=== PATIENT | male | born 1955 | race Caucasian/White ===

== ENCOUNTER 2019-02-01 01:27 | Observation (INO) | payer MEDICARE, MEDICAID ==
[2019-01-31 15:39] LABS: INR 1.03
[~2019-02-01] VITALS: Ht 177.8 cm; Wt 134.3 kg
[2019-02-01] VITALS (17 sets, daily range): BP systolic 106–162; BP diastolic 57–91
[~2019-02-01 01:27] MED LIST: GUAI600T34 PO; HYDR-2966 PO; HYDR30CR10 TP; LOSA50TA80 PO; MELA3TAB31 PO; METO25TA23 PO; MOM PO; MULT-1335 PO; NAPR220C12 PO; POTA10CA40 PO; THIA100T6 PO
[2019-02-01] MEDS ORDERED: PREGABALIN 150 MG CAPSULE PO ONE (09:00)
[2019-02-01] MEDS ORDERED: ROPIVACAINE/EPI/CLONIDINE/KET 50 ML SYRINGE INJ ONE (09:45)
[2019-02-01] MEDS ORDERED: FAMOTIDINE 20 MG TAB PO ONE (09:45)
[2019-02-01] MEDS ORDERED: ceFAZolin(*) 1 GM VIAL 3 GM in NS(*) 0.9% 100 ML BAG 100 ML IVPB ONE (09:45)
[2019-02-01] MEDS ORDERED: MIDAZOLAM 2 MG/2 ML VIAL IVP PRN (09:45)
[2019-02-01] MEDS ORDERED: LIDOCAINE/SOD BICARB 8.4% SYR ID ONE (09:45)
[2019-02-01] MEDS ORDERED: CELECOXIB 200 MG CAP PO ONE (09:45)
[2019-02-01] MEDS ORDERED: METOPROLOL SUCC XL 25 MG TABCR PO ONE (09:45)
[2019-02-01] MEDS ORDERED: NORMOSOL R SOLN(*) 1000 ML BAG 1,000 ML IV PRN ×2 (09:45→15:05)
[2019-02-01] MEDS ORDERED: ACETAMINOPHEN 500 MG TAB PO ONE (09:45)
[2019-02-01] MEDS ORDERED: ROPIVACAINE 0.5% 20 ML VIAL ONE ×2 (09:51→10:59)
[2019-02-01] MEDS ORDERED: DEXAMETHASONE SOD PHOS 10MG/ML ONE (10:59)
[2019-02-01] MEDS ORDERED: DEXAMETHASONE SOD 4 MG/ML VIAL ONE (11:04)
[2019-02-01] MEDS ORDERED: fentaNYL CITR 250 MCG/5 ML AMP ONE ×2 (11:05→13:28)
[2019-02-01] MEDS ORDERED: LIDOCAINE 2% IV 100 MG/5ML SYR ONE (11:05)
[2019-02-01] MEDS ORDERED: PROPOFOL EMUL(*) 10MG/ML 20 ML 20 ML ONE (11:05)
[2019-02-01] MEDS ORDERED: TRANEXAMIC AC 1000 MG/10ML SDV 1,000 MG in DEXTROSE 5% 50 ML BAG 50 ML IV ONE (11:30)
[2019-02-01] MEDS ORDERED: ROPIVACAINE 0.2% 400 MG/200ML 250 ML CONINFUS ONE (11:55)
[2019-02-01] MEDS ORDERED: ONDANSETRON 4 MG/2 ML VIAL ONE (12:50)
[2019-02-01] MEDS ORDERED: KETAMINE HCL 200 MG/20 ML MDV ONE ×2 (12:51→14:01)
[2019-02-01] MEDS ORDERED: fentaNYL CITR 100 MCG/2 ML AMP ONE ×2 (14:48→15:05)
[2019-02-01] MEDS ORDERED: ONDANSETRON 4 MG/2 ML VIAL IVP PRN (15:05)
[2019-02-01] MEDS ORDERED: ZOLPIDEM TARTRATE 5 MG TAB PO PRN (15:05)
[2019-02-01] MEDS ORDERED: BISACODYL 10 MG SUPP PR PRN (15:05)
[2019-02-01] MEDS ORDERED: MORPHINE 4 MG/ML SDV IVP PRN (15:05)
[2019-02-01] MEDS ORDERED: MAGNESIUM HYDROXIDE* 30ML UDCP PO PRN (15:05)
[2019-02-01] MEDS ORDERED: PROMETHAZINE 25 MG/ML 1 ML AMP IVP PRN (15:05)
[2019-02-01] MEDS ORDERED: FLUSH 10 ML SYR IVP PRN (15:05)
--- NOTE | 2019-02-01 16:22 | RADIOLOGY IMAGING REPORT ---
FACILITY: [facility] - [place] PATIENT NAME: Carlito Bond : 1955 MR: [id number] V: [id number] EXAM DATE: ORDERING PHYSICIAN: JARET PARKER TECHNOLOGIST: [facility] Patient: Carlito Bond : 1955 Visit/Account:[id number] Date of Sevice: 02/01/2019 Exam type: KNEE LIMITED RIGHT History: POST OP R TKA Comparison: None. Findings: Two views of the right knee demonstrate a right knee arthroplasty in good anatomic alignment. Soft t issue gas projects over the anterior aspect of this postoperative knee IMPRESSION: 1. As above Report Dictated By: Rose Quezada MD at 02/01/2019 4:16 PM Report E-Signed By: Rose Quezada MD at 02/01/2019 4:17 PM WSN:[email or web address]
[2019-02-01] MEDS ORDERED: ACET-2043 PO (16:26)
[2019-02-01] MEDS ORDERED: DIPH-740 PO (16:26)
[2019-02-01] MEDS ORDERED: BISA10SU62 RC (16:26)
--- NOTE | 2019-02-01 16:45 | Hospitalist Progress Note ---
Subjective Progress Notes Subjective Patient seen post-op. Reviewed PMHx (alcoholism, HTN) and medications (metoprolol, losartan, HCTZ). At present, he reports doing well. No CP/SOB/nausea. Physical Exam Vital Signs Date Time Temp Pulse Resp B/P (MAP) Pulse Ox O2 Delivery O2 Flow Rate FiO2 02/01/19 16:00 97.9 71 16 147/81 (103) 90 Nasal Cannula 2.0 General Appearance: Alert, Awake Cardiovascular: Regular Rate and Rhythm Respiratory: Clear to Auscultation GI: Soft and Non-Tender (obese) Psych: Alert & Oriented X3 Assessment and Plan Problems: (1) Status post knee replacement Status: Acute Assessment & Plan: He appears to have tolerated OR/anesthesia fairly well. He has no history of DVT/PE. He will be on aspirin 325mg daily for 30-35 days for prophylaxis. (2) HTN (hypertension) Status: Chronic Assessment & Plan: Will monitor BPs and resume metoprolol, losartan, HCTZ as needed. (3) Alcoholism Status: Chronic Assessment & Plan: He has [facility] facility and has not had any alcohol for over three months. He will continue on his nutritional supplements. Problem Qualifiers (1) Status post knee replacement: Laterality: right Qualified Codes: Z96.651 - Presence of right artificial knee joint SAMPSON GAMEZ MD Feb 01, 2019 16:45
--- NOTE | 2019-02-01 17:00 | NUR ---
Physical Therapy Impression PT eval completed. Pt would like to attempt standing at EOB if possible. Pt limited by numbness still noted in LE's. Pt tolerated side step to head of bed with Min/Mod assist by PT. Not recommended to ambulate at this time. Pt encouraged to complete stand-pivot transfer with nursing to [facility] when toileting is required for initial attempt and then amb to/from BR through the night as LE's demo improved coordination. Physical Therapy Goals 1. Pt to be SBA/CGA for sit to/from stand transfers 2. Pt to be CGA/Min assist for supine to/from sit transfers 3. Pt to ambulate x 100' with FWW and SBA/CGA Patient's Goals
[2019-02-01] MEDS: ACETAMINOPHEN 500 MG TAB PO SCH (17:08)
[2019-02-01] MEDS ORDERED: NS(*) 0.9% 250 ML BAG 250 ML ONE (20:11)
[2019-02-01] MEDS: ceFAZolin(*) 2GM/D5W 50ML 50 ML IVPB SCH (20:21)
[2019-02-01] MEDS: MELATONIN 3 MG TAB PO SCH (20:23)
[2019-02-01] MEDS ORDERED: ASPIRIN 325 MG TAB PO ONE (21:00)
[2019-02-01] MEDS: KETOROLAC TROM 10MG TAB PO PRN (21:59)
[2019-02-02] VITALS (7 sets, daily range): BP systolic 111–133; BP diastolic 66–84
[2019-02-02] MEDS: ACETAMINOPHEN 500 MG TAB PO SCH ×3 (00:59→17:54)
--- NOTE | 2019-02-02 01:07 | OPERATIVE REPORT 1 ---
EVENT DATE: February 01, 2019 SURGEON: Jcarlos Barahona MD ANESTHESIOLOGIST: Shay Porter MD ANESTHESIA: Right adductor block followed by general. HOSPICE DIRECTOR: Musa Wilson PA-C PREOPERATIVE DIAGNOSIS Right knee degenerative joint disease, varus alignment, mild flexion contracture. POSTOPERATIVE DIAGNOSIS Right knee degenerative joint disease, varus alignment, mild flexion contracture. PROCEDURE PERFORMED Right total knee arthroplasty. IMPLANTS USED MicroPort medial pivot CS system with a 7 femur, 7 tibia, 10 mm CS insert, 35 x 8 symmetric patella, and femur cut 6 degrees valgus, 10 mm. We also utilized two packages of DonJoy [place] Blue cement, ZipLine wound closure system, and our standard 50 mL of Toradol/ropivacaine cocktail. SPECIMENS None. COMPLICATIONS None. BLOOD LOSS Approximately 300 mL. DESCRIPTION OF PROCEDURE The patient was brought to the OR, receiving appropriate preoperative antibiotic, and Dr. Porter performed right adductor canal block with indwelling catheter followed by general anesthesia. Right thigh tourniquet was placed but was not utilized. Right lower extremity prepped and draped in the usual sterile fashion. Midline incision was made, followed by medial parapatellar arthrotomy. Exposure was continued along the medial tibial plateau subperiosteally to the level of the semimembranosus insertion. Laterally, the fat pad was excised, patella released and everted. Noted eburnation of the medial compartment and patellofemoral compartment, high-grade changes of the lateral compartment. There were osteophytes of the notch around the femoral condyle and the medial tibial plateau. These were removed with a rongeur. ACL and PCL were released subperiosteally by Bovie. The knee was brought up into hyperflexion. The remaining articular cartilage was removed from the distal femoral condyle by sagittal saw, and then we utilized a step-cut drill to broach the canal. We placed our intramedullary distal femoral alignment jig, setting this up at 6 degrees valgus, 10 mm. We made our distal cut with care taken to protect the soft tissues. A 3-degree external rotation guide and sizer were then placed, referencing off the anterior flange, epicondyles, and posterior condyles, and we sized the femur to a #7, drilled our holes. The 4-in-1 cutting block was positioned, followed by Z-retractors, and we made our four cuts. The tibia was then brought anteriorly onto the femur with appropriate retractors, and step-cut drill was utilized to broach the tibial canal. Intramedullary tibial guide was then positioned, which referenced for our slope, and then we set for a 10 mm cut off the least involved lateral tibial plateau and set up for rotation, pinned our block into place and made our cut, with care taken to protect the soft tissues. This was sized to a #7. The stump of the ACL, PCL, and medial and lateral meniscus were removed by Bovie. Curved osteotome was utilized to remove posterior osteophytes, followed by elevation of the capsule with the Gan elevator. We then placed our trial tibial base plate, referencing the previous rotation. We pinned this into place, placed a 10 mm insert and then our femur. We were able to achieve full extension, flexion to about 130 degrees, limited by body habitus, stability to varus and valgus stress, and a satisfactory endpoint and anterior drawer at 90 degrees. Knee was brought into full extension. Patella was sized, and we placed an 8 mm cutting guide and cut down the patella from 23 mm down to 15 mm. Peg hole guide was positioned inferiorly and medially, peg holes drilled, and we placed our trial, which fit satisfactorily. The knee was then flexed, peg holes drilled for the femur and the pegs placed. We cut for our trochlear chip and placed this. Again, we had the aforementioned range of motion and stability. The patella tracked well. Patella, femur, and tibial insert were removed. Appropriate retractors were placed to set up our keel tower, which was cut, reamed and punched. This was then removed. Bone plug placed in the distal femur. Knee brought into full extension. We copiously irrigated by pulsed lavage as we mixed two packages of DonJoy Ros[place] Blue cement. We then injected the posterior capsule with 10 mL of our cocktail, placed the knee in appropriate position, and starting at the tibia, we cemented this into place, followed by our 10 mm CS insert, then our femur. Excess cement was removed. The knee was brought into full extension with axial compression while we cemented the patella. It took 12 minutes for the cement to cure. As we were waiting for this to cure, we placed the remaining 40 mL of our cocktail into the distal quad mechanism. We then copiously irrigated once again, again assessed our tracking and stability and were satisfied. The knee was placed at 30 degrees, arthrotomy closed with #2 Vicryl followed by 2-0 Vicryl for the subcutaneous tissue and ZipLine wound closure system for skin. We placed a compressive dressing. Patient was extubated and taken to Recovery in stable condition. Hospitalist team will be consulted for medical management and anticoagulation, PT for rehab. OLU
[2019-02-02] MEDS: ceFAZolin(*) 2GM/D5W 50ML 50 ML IVPB SCH ×2 (04:20→12:54)
[2019-02-02] MEDS: KETOROLAC TROM 10MG TAB PO PRN ×2 (04:20→14:50)
[2019-02-02] MEDS: METOPROLOL SUCC XL 25 MG TABCR PO SCH (09:00)
[2019-02-02] MEDS: LOSARTAN POTASSIUM 50 MG TAB PO SCH (09:00)
--- NOTE | 2019-02-02 09:25 | Hospitalist Progress Note ---
Subjective Progress Notes Subjective He was admitted s/p knee replacement. He had no acute events overnight. Patient Complains of: Cardiovascular: No: Chest Pain Respiratory: No: Shortness of Breath Physical Exam Vital Signs Date Time Temp Pulse Resp B/P (MAP) Pulse Ox O2 Delivery O2 Flow Rate FiO2 02/02/19 06:43 98.3 70 18 121/69 (86) 93 Nasal Cannula 1.0 Intake and Output 02/02/19 01:00 Intake Total 2250 ml Output Total 400 ml Balance 1850 ml Intake Oral 600 ml IV Total 1650 ml Output Estimated Blood Loss 400 ml # Voids 1 General Appearance: Alert, Awake, No Acute Distress, Afebrile Neuro: No Gross deficits Cardiovascular: Regular Rate and Rhythm Respiratory: No Respiratory Distress, Clear to Auscultation GI: Soft and Non-Tender Psych: Alert & Oriented X3, Appropriate Mood & Affect Assessment and Plan Problems: (1) Status post knee replacement Status: Acute Assessment & Plan: He appears to have tolerated OR/anesthesia fairly well. He has no history of DVT/PE. He will be on aspirin 325mg daily for 30-35 days for prophylaxis. (2) HTN (hypertension) Status: Chronic Assessment & Plan: Will monitor BPs and resume metoprolol, losartan, HCTZ as needed. (3) Alcoholism Status: Chronic Assessment & Plan: He has been living in care home facility and has not had any alcohol for over three months. He will continue on his nutritional supplements. Exam Sepsis Risk: No Definite Risk Problem Qualifiers (1) Status post knee replacement: Laterality: right Qualified Codes: Z96.651 - Presence of right artificial knee joint SOHAM PATTON [facility] Feb 02, 2019 09:25
--- NOTE | 2019-02-02 10:00 | NUR ---
Physical Therapy Impression Pt does require verbal cues to remain focused and decrease speed as he becomes somewhat impulsive with turns. Initially pt demos halting gait pattern with very limited weight bearing. As ambulation continues, however, pt's tolerance of weight bearing improves and pt begins to complete a near step-through yancy. Pt demos flexion of 85 degrees while seated at edge of bed. Pt is limited in extension with lacking 5 degrees even with quad set. Physical Therapy Goals 1. Pt to be SBA/CGA for sit to/from stand transfers 2. Pt to be CGA/Min assist for supine to/from sit transfers 3. Pt to ambulate x 100' with FWW and SBA/CGA Patient's Goals
[2019-02-02] MEDS: ASPIRIN 325 MG TAB PO SCH (10:30)
[2019-02-02] MEDS: MULTIVITAMINS TAB PO SCH (10:31)
[2019-02-02] MEDS: THIAMINE HCL 100 MG TAB PO SCH (10:31)
--- NOTE | 2019-02-02 17:26 | NUR ---
Physical Therapy Impression Pt has met all PT goals to safely return to previous environment. Pt would benefit from further therapy at SNF to optimize ROM and strength as well as return to PLOF without assistive device for safe ambulation. Physical Therapy Goals 1. Pt to be SBA/CGA for sit to/from stand transfers 2. Pt to be CGA/Min assist for supine to/from sit transfers 3. Pt to ambulate x 100' with FWW and SBA/CGA Patient's Goals
[2019-02-02] MEDS: traMADol 50 MG TAB PO PRN (17:58)
[2019-02-02] MEDS: MELATONIN 3 MG TAB PO SCH (21:00)
[2019-02-03] MEDS: ACETAMINOPHEN 500 MG TAB PO SCH ×2 (00:21→09:12)
[2019-02-03 05:09] VITALS: BP 124/60
[2019-02-03] MEDS: oxyCODONE HCL 5 MG CAP PO PRN ×2 (05:14→12:28)
--- NOTE | 2019-02-03 08:30 | NUR ---
PHYSICAL THERAPY INFORMATION TRANSFER SHEET BED MOBILITY: Modified I/ AE with use of leg hydrochloric acid operator (SPC) TRANSFERS: Modified I/ AE GAIT: 150 ' with RW and Modified I/ AE; encourage weight bearing as tolerated. Weightbearing Status: Weight bearing as mckenzie STAIRS: 1 platform step with FWW and use of rail as needed . EXERCISES: per handout; completed quad sets, glut sets and ankle pumps. Progress per PT. Verbalizes Needs: Yes Understands Directions Yes Cooperative: Yes Family Teaching: No Physical Therapy Comment: Pt is somewhat impulsive and requires some encouragement to recall use of leg hydrochloric acid operator as needed to facilitate indep with bed mobility. Pt also requires encouragement to gain extension while at rest and to bear weight onto R) LE during ambulation.
[2019-02-03] MEDS: LOSARTAN POTASSIUM 50 MG TAB PO SCH (09:00)
[2019-02-03 09:05] VITALS: BP 138/81
[2019-02-03] MEDS: METOPROLOL SUCC XL 25 MG TABCR PO SCH (09:07)
[2019-02-03] MEDS: THIAMINE HCL 100 MG TAB PO SCH (09:07)
[2019-02-03] MEDS: ASPIRIN 325 MG TAB PO SCH (09:07)
[2019-02-03] MEDS: MULTIVITAMINS TAB PO SCH (09:08)
[2019-02-03] MEDS: KETOROLAC TROM 10MG TAB PO PRN (09:12)
[2019-02-03] MEDS ORDERED: ASPI-757 PO (09:15)
--- NOTE | 2019-02-03 09:16 | Hospitalist Progress Note ---
Subjective Progress Notes Subjective He was admitted s/p knee replacement. He had no acute events overnight. Patient Complains of: Cardiovascular: No: Chest Pain Respiratory: No: Shortness of Breath Physical Exam Vital Signs Date Time Temp Pulse Resp B/P (MAP) Pulse Ox O2 Delivery O2 Flow Rate FiO2 02/03/19 09:05 71 138/81 (100) 91 Room Air 02/03/19 08:34 97.7 24 02/02/19 19:27 0.5 Intake and Output 02/03/19 01:00 Intake Total 940 ml Balance 940 ml Intake Oral 740 ml IV Total 200 ml # Voids 4 General Appearance: Alert, Awake, No Acute Distress, Afebrile Neuro: No Gross deficits Cardiovascular: Regular Rate and Rhythm Respiratory: No Respiratory Distress, Clear to Auscultation GI: Soft and Non-Tender Psych: Alert & Oriented X3, Appropriate Mood & Affect Assessment and Plan Problems: (1) Status post knee replacement Status: Acute Assessment & Plan: He appears to have tolerated OR/anesthesia fairly well. He has no history of DVT/PE. He will be on aspirin 325mg daily for 30-35 days for prophylaxis. (2) HTN (hypertension) Status: Chronic Assessment & Plan: Will monitor BPs and resume metoprolol, losartan, HCTZ as needed. (3) Alcoholism Status: Chronic Assessment & Plan: He has been living in care home facility and has not had any alcohol for over three months. He will continue on his nutritional supplements. Exam Sepsis Risk: No Definite Risk Problem Qualifiers (1) Status post knee replacement: Laterality: right Qualified Codes: Z96.651 - Presence of right artificial knee joint SOHAM PATTON [facility] Feb 03, 2019 09:16
[2019-02-03] MEDS ORDERED: TRAM-420 PO ×2 (09:29→10:32)
[2019-02-03] MEDS ORDERED: oxycodone PO ×2 (09:29→10:33)
[2019-02-03] MEDS: traMADol 50 MG TAB PO PRN (11:13)
== END 2019-02-03 10:33 | disposition home or self-care (01) ==
LOC: OR 01:27 → MED 16:00
PROVIDERS: ADMIT Orthopaedic Surgery; ATTEND Orthopaedic Surgery
DX: M17.11 Unilateral primary osteoarthritis, right knee (principal); I10 Essential (primary) hypertension; F10.20 Alcohol dependence, uncomplicated
CPT/HCPCS: 27447; 36415; 64448; 73560; 76942; 85610; 86850; 86900; 86901; 97116; 97161; 97530; A9270; C1713; C1776; G0378; J0690; J1100; J2001; J2250; J2405; J2704; J2795; J3010; J3490; J7050; J7060